=== PATIENT | male | born 1955 | race Asian ===

== ENCOUNTER 2018-04-24 10:36 | Emergency (ER) | payer OTHER ==
[~2018-04-24] VITALS: Ht 172.7 cm; Wt 74.8 kg
[~2018-04-24 10:36] MED LIST: ACYCLOVIR800 MG ORAL; ALBUTEROL SULF8.5 GM INH; AZITHROMYCIN250 MG ORAL; BACTRIM DS TAB1 EAC1 ORAL; CILOXAN 0.3% O1 DROP LEFT EYE; CIPROFLOXACIN500 M2 ORAL; IBUPROFEN600 MG ORAL; KENALOG 0.1% LO60 ML APPLIC; NORCO 5-325 TA1 EACH ORAL; PHENAZOPYRIDIN200 MG ORAL; POLYTRIM OP SOL10 ML LEFT EYE; PREDNISONE20 MG ORAL; TRAMADOL HCL50 MG ORAL; UNOBMED
--- NOTE | 2018-04-24 10:56 | NUR ---
ED Nurse Note: pt ambulated to ED c/o urinary frequency, dysuria and hematuria pt stated that he had blood clots in urine. pt stated that he had this problems in the past
[2018-04-24 11:17] LABS: APPEARANCE,URINE CLOUDY; BILIRUBIN, URINE NEGATIVE (NEGATIVE); GLUCOSE, URINE (UA) NEGATIVE (NEGATIVE); KETONES,URINE NEGATIVE (NEGATIVE); LEUKOCYTE ESTERASE ,URINE 3+ (NEGATIVE); NITRITE,URINE NEGATIVE (NEGATIVE); PH,URINE 8 (4.5-8.0); PROTEIN,URINE 2+ (NEGATIVE); UROBILINOGEN,URINE 1 MG/DL (0.0-1.0)
[2018-04-24 11:18] LABS: COLOR,URINE BROWN
[2018-04-24 11:25] VITALS: BP 108/66
--- NOTE | 2018-04-24 11:32 | Emergency Room Report ---
History of Present Illness General Chief Complaint: Male Urogenital Problems Source: Patient Present Illness HPI This patient states that he has had hematuria and frequency for the past day. He denies recent illness. Denies fever or chills. He denies nausea or vomiting. He has no other complaints. Allergies: Coded Allergies: No Known Allergies (Unverified , 09/30/13) Patient History Past Medical History: see triage record, HTN, UT, CAD Past Surgical History: CABG Social History: Denies: smoking, alcohol use, drug use Reviewed Nursing Documentation: PMH: Agreed; PSxH: Agreed Nursing Documentation-PMH Hx Cardiac Problems: Yes - CABG 2010, high cholesterol Review of Systems All Other Systems: negative except mentioned in HPI Physical Exam Vital Signs Date Time Temp Pulse Resp B/P (MAP) Pulse Ox O2 Delivery O2 Flow Rate FiO2 04/24/18 10:46 99.0 79 16 108/66 98 Room Air Sp02 EP Interpretation: reviewed, normal General Appearance: no apparent distress, alert, GCS 15, non-toxic Head: normocephalic, atraumatic Eyes: bilateral eye normal inspection, bilateral eye PERRL ENT: hearing grossly normal, normal pharynx, no angioedema, normal voice Neck: full range of motion, supple/symm/no masses Respiratory: no respiratory distress, no retraction, no accessory muscle use, speaking full sentences Gastrointestinal: normal bowel sounds, non tender, soft, non-distended, no guarding, no rebound Rectal: deferred Musculoskeletal: back normal, gait/station normal, normal range of motion, non- tender Neurologic: alert, oriented x3, responsive, motor strength/tone normal, sensory intact, speech normal Psychiatric: judgement/insight normal, memory normal, mood/affect normal, no suicidal/homicidal ideation Skin: normal color, no rash, warm/dry, well hydrated Medical Decision Making Diagnostic Impression: Primary Impression: Prostatitis ER Course Patient has a clinical presentation consistent with prostatitis. There are no systemic symptoms to include fever, chills, sweating, nausea or vomiting that would make me concerned for pyelonephritis. Overall this patient's evaluation is benign. Patient is stable for outpatient oral antibiotic therapy. The patient does have a history of BPH and is on medication for this. The patient is instructed to follow-up with his urologist. The patient was given return precautions and followup instructions. Laboratory Tests Test 04/24/18 11:00 Urine Color Brown Urine Appearance Cloudy Urine pH 8 (4.5-8.0) Urine Specific Kegley 1.010 (1.005-1.035) Urine Protein 2+ (NEGATIVE) H Urine Glucose (UA) Negative (NEGATIVE) Urine Ketones Negative (NEGATIVE) Urine Blood 5+ (NEGATIVE) H Urine Nitrite Negative (NEGATIVE) Urine Bilirubin Negative (NEGATIVE) Urine Urobilinogen 1 MG/DL (0.0-1.0) H Urine Leukocyte Esterase 3+ (NEGATIVE) H Urine RBC Tntc /HPF (0 - 0) H Urine WBC 15-20 /HPF (0 - 0) H Urine Squamous Epithelial Cells None /LPF (NONE/OCC) Urine Bacteria Few /HPF (NONE) Last Vital Signs Date Time Temp Pulse Resp B/P (MAP) Pulse Ox O2 Delivery O2 Flow Rate FiO2 04/24/18 11:25 99.0 79 16 108/66 98 Room Air Status: improved Disposition: HOME, SELF-CARE Condition: Improved Celestina Ramesh DO Apr 24, 2018 11:32
[2018-04-24] MEDS ORDERED: PHENAZOPYRIDIN100 MG ORAL (11:56)
[2018-04-24] MEDS ORDERED: CIPROFLOXACIN500 M2 ORAL (11:56)
[2018-04-24 12:06] VITALS: BP 108/66
== END 2018-04-24 12:00 | disposition home or self-care (01) ==
LOC: EMR 11:55
DX: N41.9 Inflammatory disease of prostate, unspecified (principal); I10 Essential (primary) hypertension; I25.2 Old myocardial infarction; I25.10 Atherosclerotic heart disease of native coronary artery without angina pectoris; Z95.1 Presence of aortocoronary bypass graft
CPT/HCPCS: 81003; 87086; 99283

== ENCOUNTER → 2018-06-07 | Emergency (ER) | payer OTHER ==
[~2018-06-07] VITALS: Ht 172.7 cm; Wt 70.3 kg
[~2018-06-07] MED LIST changes: +IMODIUM2 MG ORAL; +PHENAZOPYRIDIN100 MG ORAL
[2018-06-07 21:45] VITALS: BP 112/61
--- NOTE | 2018-06-07 21:45 | NUR ---
ED Nurse Note: Pt arrived ED from Home, c/o dirrhea for 3 day. Pt is A/O X 4. Vital signs stable at this time. waitng for ordered.
[2018-06-07 22:03] VITALS: BP 114/62
--- NOTE | 2018-06-07 22:03 | NUR ---
ER DISCHARGE NOTE: Patient is cleared to be discharged per Dr. Suggs, pt is aox4, on room air, with stable vital signs. pt was given dc and prescription instructions, pt was able to verbalize understanding, pt id band removed. pt is able to ambulate with steady gait. pt took all belongings.
--- NOTE | 2018-06-07 22:24 | Emergency Room Report ---
History of Present Illness General Chief Complaint: Diarrhea Source: Patient Present Illness HPI 62-year-old M presents ED for evaluation. Patient complaining of diarrhea for 3 days. Denies any abdominal pain. Denies any nausea or vomiting. Denies fevers chills. Denies any recent travel or recent antibiotic use. States he believes it is likely related to food. States it is worse at night when he has to constantly get up to use the bathroom. No other aggravating or relieving factors. Denies any other associated symptoms Allergies: Coded Allergies: No Known Allergies (Unverified , 09/30/13) Patient History Past Medical History: HTN, CAD Past Surgical History: CABG Pertinent Family History: none Social History: Denies: smoking, alcohol use, drug use Immunizations: UTD Reviewed Nursing Documentation: PMH: Agreed; PSxH: Agreed Nursing Documentation-PMH Hx Cardiac Problems: Yes - CABG 2010, high cholesterol, bipass Hx Hypertension: Yes - cholesterol Review of Systems All Other Systems: negative except mentioned in HPI Physical Exam Vital Signs Date Time Temp Pulse Resp B/P (MAP) Pulse Ox O2 Delivery O2 Flow Rate FiO2 06/07/18 21:35 98.6 68 16 112/61 96 Room Air Sp02 EP Interpretation: reviewed, normal General Appearance: no apparent distress, alert, GCS 15, non-toxic Head: normocephalic, atraumatic Eyes: bilateral eye normal inspection, bilateral eye PERRL ENT: hearing grossly normal, normal pharynx, no angioedema, normal voice Neck: full range of motion, supple/symm/no masses Respiratory: chest non-tender, lungs clear, normal breath sounds, speaking full sentences Cardiovascular #1: regular rate, rhythm, no edema Cardiovascular #2: 2+ carotid (R), 2+ carotid (L), 2+ radial (R), 2+ radial (L) , 2+ dorsalis pedis (R), 2+ dorsalis pedis (L) Gastrointestinal: normal bowel sounds, non tender, soft, non-distended, no guarding, no rebound Rectal: deferred Genitourinary: normal inspection, no CVA tenderness Musculoskeletal: back normal, gait/station normal, normal range of motion, non- tender Neurologic: alert, oriented x3, responsive, motor strength/tone normal, sensory intact, speech normal Psychiatric: judgement/insight normal, memory normal, mood/affect normal, no suicidal/homicidal ideation Reflexes: 3+ bicep (R), 3+ bicep (L), 3+ tricep (R), 3+ tricep (L), 3+ knee (R) , 3+ knee (L) Skin: normal color, no rash, warm/dry, well hydrated Lymphatic: no adenopathy Medical Decision Making Diagnostic Impression: Primary Impression: Diarrhea Qualified Codes: R19.7 - Diarrhea, unspecified ER Course Hospital Course 62 yo M presents with diarrhea x 3 days differential diagnosis: gastritis, SBO, cholecystits, gastroenteritis Clinical course Patient placed on stretcher. On personnel monitor. After initial history, physical exam reveals a elderly male in no acute distress. Abdomen soft. No guarding or rebound. mucus membranes moist. Vital stable. No signs of dehydration. I explained to patient that findings are likely viral and self-limited. Patient is only asking for some medication to help with the diarrhea when he is sleeping. We'll prescribe loperamide for night leonarda,e however I encouraged patient to limit use of this medication Safe for discharge or close outpatient follow-up. States he has a PMD I feel this is a highly complex case requiring extensive working including EKG/ Rhythm strip, Xray/CT/US, Blood/urine lab work, repeat exams while in ED, and administration of strong opiates/narcotics for pain control, admission to hospital or close patient follow up. Diagnosis - diarrhea Stable and discharged to home with prescriptions for loperamide. Followup with PMD. Return to ED if symptoms recur or worsen Last Vital Signs Date Time Temp Pulse Resp B/P (MAP) Pulse Ox O2 Delivery O2 Flow Rate FiO2 06/07/18 22:03 98.1 74 16 114/62 97 Room Air Status: improved Disposition: HOME, SELF-CARE Condition: Stable Scripts Loperamide HCl (Loperamide) 2 Mg Capsule 2 MG ORAL Q6HR for 5 Days, CAP 0 Refills Prov: Crow Suggs MD 06/07/18 Patient Instructions: Viral Gastroenteritis, Adult Crow Suggs MD Jun 07, 2018 22:24
== END | disposition home or self-care (01) ==
LOC: EMR 21:50
DX: R19.7 Diarrhea, unspecified (principal); I10 Essential (primary) hypertension; Z95.1 Presence of aortocoronary bypass graft; E78.00 Pure hypercholesterolemia, unspecified
CPT/HCPCS: 99282

== ENCOUNTER 2019-12-04 21:50 | Emergency (ER) | payer OTHER ==
[~2019-12-04] VITALS: Ht 172.7 cm; Wt 72.6 kg
[2019-12-04 22:30] VITALS: BP 119/72
--- NOTE | 2019-12-04 22:30 | NUR ---
ED Nurse Note: Patient walked into ED from home for c/o abscess/rash to R groin area x1 week. Patient denies injury to the area. He is aaox4, breathing is normal and unlabored. NAD and VSS.
--- NOTE | 2019-12-04 22:35 | Emergency Room Report ---
History of Present Illness General Chief Complaint: Skin Rash/Abscess Source: Patient Present Illness HPI 64-year-old male here with right groin abscess. Patient says that he shaved his groin 7 days ago and that 6 days ago he began to notice some red swelling and pain of the right groin. He says that has grown and he was able to express some pus from the abscess today. Has never had this before. Denies fevers or chills. No IV drug use. Allergies: Coded Allergies: No Known Allergies (Unverified , 09/30/13) COVID-19 Screening Contact w/high risk pt: No Experienced COVID-19 symptoms?: No COVID-19 Testing performed ENLISTED AIRCREW/AERIAL OBSERVER/GUNNER: No Nursing Documentation-PM Past Medical History: No History, Except For Hx Cardiac Problems: Yes - CABG 2010, high cholesterol, bipass Hx Hypertension: Yes - cholesterol Review of Systems All Other Systems: negative except mentioned in HPI Physical Exam Vital Signs Date Time Temp Pulse Resp B/P (MAP) Pulse Ox O2 Delivery O2 Flow Rate FiO2 12/04/19 22:01 97.3 82 16 119/72 (88) 99 Room Air Sp02 EP Interpretation: reviewed, normal General Appearance: no apparent distress, alert, GCS 15, non-toxic Head: normocephalic, atraumatic Eyes: bilateral eye normal inspection, bilateral eye PERRL ENT: hearing grossly normal, normal pharynx, no angioedema, normal voice Neck: full range of motion, supple/symm/no masses Respiratory: chest non-tender, lungs clear, normal breath sounds, speaking full sentences Cardiovascular #1: regular rate, rhythm, no edema Cardiovascular #2: 2+ carotid (R), 2+ carotid (L), 2+ radial (R), 2+ radial (L) , 2+ dorsalis pedis (R), 2+ dorsalis pedis (L) Gastrointestinal: normal bowel sounds, non tender, soft, non-distended, no guarding, no rebound Rectal: deferred Genitourinary: normal inspection, no CVA tenderness Musculoskeletal: back normal, normal range of motion, calf tenderness, gait/ station normal, non-tender Neurologic: alert, motor strength/tone normal, oriented x3, sensory intact, responsive, speech normal Psychiatric: judgement/insight normal, memory normal, mood/affect normal, no suicidal/homicidal ideation Reflexes: 3+ bicep (R), 3+ bicep (L), 3+ tricep (R), 3+ tricep (L), 3+ knee (R) , 3+ knee (L) Skin: other - 2 cm abscess of the right groin with approximately 3 cm surrounding erythema and induration. Actively draining small amount of purulent fluid Lymphatic: no adenopathy Procedures Incision and Drainage Incision and Drainage : Consent: Verbal Blade Size: 11 I & D Procedure: betadine prep Wound Location: other - Right groin Wound's Depth, Shape: superficial Wound Explored: clean Anesthesia: Lidocaine w/ Epi Patient Tolerated: Well Complications: None Progress Large amount of purulent and serosanguinous fluid drained Medical Decision Making Diagnostic Impression: Primary Impression: Cellulitis Additional Impression: Abscess ER Course 64-year-old male here with right groin abscess. Abscess was drained as described above. Patient did not suffer any complications from the procedure. A large amount of purulent and serosanguineous fluid was successfully drained and patient felt much improved. He had some surrounding cellulitis and was therefore given a prescription for doxycycline. will follow-up with his primary care provider. Told to come back to the emergency department if the erythema or drainage worsens or he has any fevers or chills. He expressed understanding and was discharged. Last Vital Signs Date Time Temp Pulse Resp B/P (MAP) Pulse Ox O2 Delivery O2 Flow Rate FiO2 12/04/19 22:01 97.3 82 16 119/72 (88) 99 Room Air Scripts Doxycycline Monohydrate* (DOXYCYCLINE MONOHYDRATE*) 100 Mg Capsule 100 MG ORAL Q12H, #14 CAP 0 Refills Prov: Dakota Dc M.D. 12/05/19 Dakota Dc M.D. Dec 04, 2019 22:35
[2019-12-05] MEDS ORDERED: Lidocaine 1% 10mg/ml/EPI 0.01mg/ml 30ml INJ ONE (00:15)
--- NOTE | 2019-12-05 00:25 | NUR ---
ED Nurse Note: ERMD bedside for I&D.
[2019-12-05] MEDS ORDERED: DOXYCYCLINE MO100 MG ORAL (00:35)
[2019-12-05] MEDS ORDERED: Doxycycline Monohydrate 100mg ORAL ONE (00:45)
[2019-12-05 01:10] VITALS: BP 115/77
--- NOTE | 2019-12-05 01:10 | NUR ---
ER DISCHARGE NOTE: Patient is cleared to be discharged per ERMD, pt is aox4, on room air, with stable vital signs. pt was given dc and prescription instructions, pt was able to verbalize understanding, pt id band removed. pt is able to ambulate with steady gait. pt took all belongings.
== END 2019-12-05 01:10 | disposition home or self-care (01) ==
LOC: EMR 23:05
DX: L02.214 Cutaneous abscess of groin (principal); L03.314 Cellulitis of groin; I10 Essential (primary) hypertension; E78.00 Pure hypercholesterolemia, unspecified; Z95.1 Presence of aortocoronary bypass graft; Z98.84 Bariatric surgery status
CPT/HCPCS: 10060; Z7502; 99282